=== PATIENT | female | born 1930 | race Asian ===

== ENCOUNTER 2016-06-04 06:33 | Emergency (ER) | payer MEDICARE, OTHER ==
[2016-06-04] MEDS ORDERED: IOPAMIDOL 300 (61%) 100 ML VIAL IV ONE (06:34)
[2016-06-04 07:31] LABS: ABSOLUTE NEUTROPHIL COUNT 3.3 K/mm3 (1.8-7.7); BASO % 0.5 % (0.2-1.0); EOS # 0.3 (0.0-0.5); EOS % 4.8 % (0.9-2.9); HEMATOCRIT 39.8 % (37.0-47.0); IMM NEUT # 0.1 K/mm3 (0-0.2); IMM NEUT% 0.8 % (0-1); LYMPH # 2.3 (1.0-4.8); LYMPH % 35.3 % (15-45); MEAN CELL VOLUME 87.9 fl (81.0-99.0); MEAN CORPUSCULAR HEMOGLOBIN 28.7 pg (27.0-31.0); MEAN CORPUSCULAR HGB CONC 32.7 g/dl (33.0-37.0); MEAN PLATELET VOLUME 8.6 fl (7.4-10.4); MONO # 0.6 (0.0-0.8); MONO % 8.7 % (4-12); NEUT % 49.9 % (43-75); PLATELET COUNT 276 K/mm3 (130-400); RED CELL DISTRIBUTION WIDTH 12.8 % (11.5-14.5)
[2016-06-04 07:39] LABS: LIPASE 36 U/L (11-82)
[2016-06-04 07:40] LABS: ALB/GLOB RATIO 1.2 (>1.0); ALBUMIN 3.8 gm/dL (3.5-5.7)
[2016-06-04 08:06] LABS: SPECIFIC GRAVITY 1.015 (1.001-1.030); URINE BILIRUBIN NEGATIVE (NEGATIVE); URINE BLOOD 4+ (NEGATIVE); URINE GLUCOSE (UA) NEGATIVE (NEGATIVE); URINE LEUKOCYTE ESTERASE NEGATIVE (NEGATIVE); URINE NITRITE NEGATIVE (NEGATIVE); URINE PROTEIN NEGATIVE (NEGATIVE); URINE UROBILINOGEN NORMAL (0-1 mg/dl)
[2016-06-04 08:12] LABS: URINE APPEARANCE CLEAR; URINE COLOR YELLOW
[2016-06-04 08:14] LABS: URINE BACTERIA RARE; URINE EPITHELIAL CELLS 0-1 /hpf; URINE WBC NEG /hpf
--- NOTE | 2016-06-04 09:23 | CT ---
ABD/PELVIS W/ CON COMPARISON: None. HISTORY: Awoke with sharp left lower quadrant abdominal pain. Technique: No oral contrast. Intravenous injection 80 mL Isovue 300. Using a [employer] Aquilion [address] scanner, images were obtained from the diaphragm to the floor the pelvis. An automated dose reduction technique was used to minimize patient radiation dose. Dose information: CTDIvol (mGy): 4.60 DLP(mGycm): 207.20 FINDINGS: Lung bases: Normal. Inferior mediastinum and heart: Normal. Liver: Normal. Gallbladder:Normal. Bile ducts: Normal. Pancreas: Normal. Spleen: Normal. Adrenal glands: Normal. Kidneys: Normal right kidney. Minimal left hydronephrosis. Incidentally noted 6 mm simple cyst, located medially in the left kidney lower pole Ureters: Normal Urinary bladder: Normal. Uterus and adnexa: Normal. Blood vessels: Normal Lymph nodes: Normal Stomach: Normal Duodenum: Normal Small intestine: Normal Appendix: Normal Colon: Normal Abdominal wall and supporting musculature: Normal Bones: Normal IMPRESSION: 1. Minimal left hydronephrosis caused by a 3.8 x 2.9 mm stone at the left ureterovesical junction, projecting into the bladder lumen. The report was sent to the emergency department electronic medical record system 06/04/2016 at 9:25
== END 2016-06-04 09:41 | disposition home or self-care (01) ==
LOC: ED 06:33
DX: N20.1 Calculus of ureter (principal)
CPT/HCPCS: 83605; 83690; 82150; 85025; 87086; 80053; 84484; 81001; 74177; 99284 ×2; 51701; Q9967